=== PATIENT | female | born 1940 | race Caucasian/White ===

== ENCOUNTER → 2024-07-24 12:57 | Outpatient (REF) | payer MEDICARE, BC, SELFPAY | LOC: WDC 12:57 | PROVIDERS: ATTENDING PHYSICIAN Internal Medicine | DX: Z12.31 Encounter for screening mammogram for malignant neoplasm of breast (principal) | CPT/HCPCS: 77063; 77067 ==

== ENCOUNTER → 2025-09-02 12:55 | Outpatient (REF) | payer MEDICARE, BC, SELFPAY | LOC: WDC 12:55 | PROVIDERS: ATTENDING PHYSICIAN Internal Medicine | DX: Z12.39 Encounter for other screening for malignant neoplasm of breast (principal); Z12.31 Encounter for screening mammogram for malignant neoplasm of breast | CPT/HCPCS: 77063; 77067 ==